=== PATIENT | female | born 2005 | race Caucasian/White ===

== ENCOUNTER 2025-08-24 11:19 | Outpatient (CLI) | payer OTHER, SELFPAY ==
[2025-08-27 13:05] LABS: Pap Test Digital Imaging Done
== END 2025-08-24 11:20 | disposition home or self-care (01) ==
LOC: KYNREF 11:19
PROVIDERS: PCP Nurse Practitioner Family; Visit Provider Nurse Practitioner Family
DX: Z12.4 Encounter for screening for malignant neoplasm of cervix (principal)
CPT/HCPCS: 87624; 87625; 88141; 88142; 88175